=== PATIENT | female | born 1950 | race African-American/Black ===

== ENCOUNTER 2017-08-15 14:39 | Emergency (ER) | payer MEDICARE, MEDICAID ==
[2017-08-15 15:06] LABS: Prothrombin Time 13.8 SEC (12.0-14.7)
[2017-08-15 15:07] LABS: INR-International Normal Ratio 1.1; PTT 36.3 SEC (22.9-36.1)
[2017-08-15 15:14] LABS: Hemoglobin 13.7 g/dL (12.0-16.0); Mean Corpuscular HGB CONC 36.4 g/dL (32.0-36.0); Mean Corpuscular Hemoglobin 27.8 pg (27.0-31.0); Mean Corpuscular Volume 76.4 fL (78.0-98.0); Mean Platelet Volume 6.2 fL (7.4-10.4); Platelet Count 960 thou/uL (130-400); RBC Distribution Width 13.4 % (11.5-14.5); Red Blood Cell (RBC) Count 4.93 mill/uL (4.20-5.40); White Blood Cell (WBC) Count 11.1 thou/uL (4.8-10.8)
[2017-08-15 15:15] LABS: ALT (SGPT) 11 U/L (8-55); AST (SGOT) 15 U/L (5-34); Albumin 4.2 g/dL (3.4-4.8); Alkaline Phosphatase 105 U/L (40-150); Anion Gap 18 mmol/L (10-20); BUN (Urea Nitrogen) 21 mg/dL (9.8-20.1); Bilirubin, Total 0.6 mg/dL (0.2-1.2); CK (CPK) 59 U/L (29-168); Calc. Creatinine Clearance 0 mL/min (70-130); Calcium 10.1 mg/dL (7.8-10.44); Carbon Dioxide 21 mmol/L (23-31); Chloride 107 mmol/L (98-107); Estimated GFR-MDRD 57; Globulin 3.7 g/dL (2.4-3.5); Glucose 116 mg/dL (80-115); Protein, Total 7.9 g/dL (6.0-8.3); Sodium 142 mmol/L (136-145)
--- NOTE | 2017-08-15 15:15 | CT ---
CT HEAD NONCONTTRAST: INDICATION: Stroke. FINDINGS: There is no acute intracranial hemorrhage, mass effect, or midline shift. Chronic lacunar infarction of the left basal ganglia is present. There is mild chronic microvascular ischemic disease of the c erebral white matter. Deep white matter chronic-appearing infarction is seen at the left centrum tc iovale. There is a small area of encephalomalacia at the posterior left parietal lobe. IMPRESSION: 1. Chronic ischemic disease. 2. No acute intracranial hemorrhage or mass effect. 3. Telephone call with findings placed to ER physician, Dr. Lalit Knutson 1459 hours 08/15/17. CODE CR POS: RAMAN
[2017-08-15 15:16] LABS: CKMB 0.9 ng/mL (0-6.6); Troponin I Less than 0.010 ng/mL (< 0.028)
[2017-08-15 15:19] LABS: #Basophils 0.1 thou/uL (0.0-0.2); #Eosinphils 0.3 thou/uL (0.0-0.7); #Lymphocytes 1.7 thou/uL (1.20-3.40); #Monocytes 0.5 thou/uL (0.11-0.59); #Neutrophils 8.4 thou/uL (1.40-6.50); %Basophils 1.3 % (0.0-1.0); %Eosinophils 2.4 % (0.0-10.0); %Lymphocytes 15.7 % (21.0-51.0); %Monocytes 4.8 % (0.0-10.0); %Neutrophils 75.8 % (42.0-75.0); Eosinophils 3 % (0-10); Lymphocytes 14 % (21-51); MDiff Complete? YES; Monocytes 6 % (0-10); Neutrophil 77 % (42-75)
[2017-08-15 15:21] LABS: PLT Morphology Comment Appears Increased
--- NOTE | 2017-08-15 16:47 | CT ---
CTA HEAD WITH 3D VOLUME RENDERING CTA NECK WITH 3D VOLUME RENDERING: Date: 08/15/17 CLINICAL HISTORY: Stroke. FINDINGS: There is contrast heterogeneity of the aortic arch, which does limit evaluation of the lumen of the a ortic arch. The origins of the great vessels emanating from the aortic arch revealed no high grade st enosis or occlusion. There is calcification at the origin of the right vertebral artery. The bilatera l distal vertebral arteries reveal mild calcification. Basilar artery is patent. Bilateral cervical I CA reveal retropharyngeal course with mild scattered calcification. Bilateral common carotid arteries are grossly patent. There is calcification at each carotid siphon without obvious occlusion at the s kull base. Bilateral M1 segments reveal no evidence of occlusion thrombus. Small A1 segments of each RENE are noted. There is no obvious abnormality at the level of the ACOM. A2 segments of each RENE are grossly patent. IMPRESSION: 1. There is no high grade stenosis or occlusion of the arterial system of the head and neck. There i s limited evaluation of the aortic arch due to artifact as discussed above. 2. Scattered vascular disease is present, not atypical for patient's age. 3. Incidental note of mucosal prominence of the oropharynx. Correlate with direct visualization. Notification of report placed at 1618 hours on 08/15/17. CODE CR. POS: RAMAN
== END 2017-08-15 16:57 | disposition short-term general hospital (02) ==
LOC: BURERS 14:39
DX: I16.0 Hypertensive urgency (principal); E78.5 Hyperlipidemia, unspecified; M10.9 Gout, unspecified; I10 Essential (primary) hypertension
CPT/HCPCS: 36416; 70450; 70496; 70498; 80053; 82553; 84484; 85025; 85610; 85730; 93005; 94760; 96365; 96366